=== PATIENT | female | born 1990 | race Caucasian/White ===

== ENCOUNTER 2022-06-17 11:48 | Emergency (ER) | payer MEDICAID ==
[~2022-06-17] VITALS: Ht 157.5 cm; Wt 63.5 kg
[2022-06-17 11:50] VITALS: BP_SYST 134
[2022-06-17] MEDS ORDERED: PHENobarbital SODIUM 65 MG/ML VIAL IVP ONE ×2 (12:15→13:45)
== END 2022-06-17 14:58 | disposition home or self-care (01) ==
LOC: SED 11:48
DX: F10.230 Alcohol dependence with withdrawal, uncomplicated (principal); F41.9 Anxiety disorder, unspecified; Z79.899 Other long term (current) drug therapy; Y90.6 Blood alcohol level of 120-199 mg/100 ml
CPT/HCPCS: 99284; 96374; 96376; J2560